=== PATIENT | male | born 1990 | race Caucasian/White ===

== ENCOUNTER 2018-08-09 13:19 | Day surgery (SDC) | payer OTHER, SELFPAY ==
--- NOTE | 2018-08-09 14:14 | RAD REPORT ---
EXAM DESCRIPTION: RAD - Hand Right 3 View - 08/09/2018 2:03 pm CLINICAL HISTORY: DEFORMITY Trauma COMPARISON: Hand Right 3 View dated 09/06/2013 FINDINGS: Mildly angulated fractures involve the distal fifth metacarpal shaft and mid fourth metaca rpal shaft of the right hand. Moderate adjacent soft tissue swelling. A dislocation is not seen.
[2018-08-09] MEDS ORDERED: CEFAZOLIN 1GM (PREMIX IV) 1 GM/50 ML BAG ONE (15:07)
[2018-08-09] MEDS ORDERED: METOCLOPRAMIDE 10 MG/2mL INJ ONE (15:14)
[2018-08-09] MEDS ORDERED: ACETAMINOPHEN 500 MG TAB PO PRN (15:26)
[2018-08-09] MEDS ORDERED: LIDOCAINE 1% MPF 5 ML VIAL ONE (15:28)
--- NOTE | 2018-08-09 15:37 | ER ---
Nurse's Notes [facility] Name: Car Kirby Age: 28 yrs Sex: Male : 1990 Arrival Date: 08/09/2018 Time: 13:20 Bed 27 Private MD: None, None Diagnosis: Displaced fracture of neck of fifth metacarpal bone, left hand Presentation: 08/09 13:33 Presenting complaint: Patient states: i punched the wall and hit the stud in the wall. tw2 Transition of care: patient was not received from another setting of care. Onset of symptoms was August 09, 2018. Risk Assessment: Do you want to hurt yourself or someone else? Patient reports no desire to harm self or others. Initial Sepsis Screen: Does the patient meet any 2 criteria? No. Patient's initial sepsis screen is negative. Does the patient have a suspected source of infection? No. Patient's initial sepsis screen is negative. Care prior to arrival: None. 13:33 Method Of Arrival: Ambulatory tw2 13:33 Acuity: SEE 4 tw2 Triage Assessment: 14:03 General: Appears in no apparent distress. comfortable, Behavior is calm, cooperative, kr2 appropriate for age. Historical: - Allergies: 13:35 Bactrim; tw2 - Home Meds: 13:35 None [Active]; tw2 - PMHx: 13:35 None; tw2 - PSHx: 13:35 right hand; tw2 - Immunization history:: Last tetanus immunization: < 5 years ago. - Social history:: Smoking status: Patient/guardian denies using tobacco. - Ebola Screening: : Patient denies travel to an Ebola-affected area in the 21 days before illness onset. Screenin:03 Abuse screen: Denies threats or abuse. Denies injuries from another. Nutritional kr2 screening: No deficits noted. Tuberculosis screening: No symptoms or risk factors identified. Fall Risk None identified. Assessment: 13:40 General: Appears in no apparent distress. comfortable, Behavior is calm, cooperative. kr2 Pain: Complains of pain in left hand Pain does not radiate. Pain currently is 10 out of 10 on a pain scale. Quality of pain is described as aching, throbbing, Is continuous, Alleviated by nothing. Neuro: Level of Consciousness is awake, alert, obeys commands, Oriented to person, place, time, situation, Appropriate for age Intact. Cardiovascular: Patient's skin is warm and dry. Respiratory: Airway is patent Respiratory effort is even, unlabored, Respiratory pattern is regular, symmetrical. Musculoskeletal: Circulation, motion, and sensation intact. Swelling present in left hand. Injury Description: Patient reports punching a wall and hitting the stud in the wall. Swelling and pain present to left hand. 14:30 Reassessment: Patient appears in no apparent distress at this time. Patient and/or kr2 family updated on plan of care and expected duration. Pain level reassessed. Patient is alert, oriented x 3, equal unlabored respirations, skin warm/dry/pink. 16:00 Reassessment: Patient appears in no apparent distress at this time. Patient and/or kr2 family updated on plan of care and expected duration. Pain level reassessed. Patient is alert, oriented x 3, equal unlabored respirations, skin warm/dry/pink. OR nurse here to transport [facility]. Vital Signs: 13:34 BP 136 / 85; Pulse 79; Resp 18; Temp 98.7(TE); Pulse Ox 99% on R/A; Pain 10/10; tw2 15:50 BP 134 / 70; Pulse 76; Resp 17; Pulse Ox 99% ; kr2 ED Course: 13:20 Patient arrived in ED. sb2 13:21 None, None is Private Physician. sb2 13:34 Triage completed. tw2 13:35 Arm band placed on. tw2 13:36 Leanne Sanchez, NEGATIVE TURNER APPRENTICE [facility]. nh 13:36 Paulino Quinones MD is Attending Physician. nh 13:40 Patient has correct armband on for positive identification. Bed in low position. Call kr2 light in reach. Side rails up X 1. Pulse ox on. NIBP on. Door closed. Lights dimmed. Head of bed elevated. 13:47 Monse Galloway RN is Primary Nurse. kr2 14:04 Hand Right 3 View XRAY In Process Unspecified. EDMS 15:15 Inserted saline lock: 18 gauge in right antecubital area, using aseptic technique. kr2 15:35 Subhash Saab MD is Hospitalizing Provider. nh 15:51 Inserted saline lock: 20 gauge in right forearm, using aseptic technique. IV ed1 discontinued, intact, bleeding controlled, Pressure dressing applied. 16:00 No provider procedures requiring assistance completed. Patient admitted, IV remains in kr2 place. 20g to right forearm. Administered Medications: 15:15 Drug: Reglan 10 mg Route: IVP; Site: right antecubital; kr2 15:30 Follow up: Response: No adverse reaction kr2 15:18 Drug: Ancef 1 grams Route: IVPB; Site: left antecubital; kr2 16:00 Follow up: Response: No adverse reaction; IV Status: Completed infusion kr2 Outcome: 15:30 Instructed on the need for admit, Demonstrated understanding of instructions. kr2 15:36 Decision to Hospitalize by Provider. de 16:00 Admitted to OR accompanied by nurse, via stretcher. kr2 16:00 Condition: stable 16:02 Patient left the ED. kr2 Signatures: Dispatcher [employer] EDMS Leanne Sanchez, NEGATIVE TURNER APPRENTICE NEGATIVE TURNER APPRENTICE de Fern Leon, MEDICAL PRACTITIONERS MEDICAL PRACTITIONERS ed1 Shanti Landeros RN RN tw2 Monse Galloway RN RN kr2 Nadia Enciso sb2
--- NOTE | 2018-08-09 15:37 | EDPHYS ---
Physician Documentation [facility] Name: Car Kirby Age: 28 yrs Sex: Male : 1990 Arrival Date: 08/09/2018 Time: 13:20 Bed 27 Private MD: None, None ED Physician Paulino Quinones HPI: 08/09 15:29 This 28 yrs old Male presents to ER via Ambulatory with complaints of Hand nh Injury. 15:29 The patient or guardian reports a contusion, deformity, injury. The complaints affect nh the right hand diffusely. Context: The problem was sustained at home, resulted from using own fist to strike, a wall. Onset: The symptoms/episode began/occurred acutely, just prior to arrival. Modifying factors: The symptoms are alleviated by nothing, the symptoms are aggravated by movement. Associated signs and symptoms: The patient has no apparent associated signs or symptoms. Severity of symptoms: At their worst the symptoms were moderate, just prior to arrival, in the emergency department the symptoms are unchanged. The patient has not experienced similar symptoms in the past. The patient has not recently seen a physician. Historical: - Allergies: 13:35 Bactrim; tw2 - Home Meds: 13:35 None [Active]; tw2 - PMHx: 13:35 None; tw2 - PSHx: 13:35 right hand; tw2 - Immunization history:: Last tetanus immunization: < 5 years ago. - Social history:: Smoking status: Patient/guardian denies using tobacco. - Ebola Screening: : Patient denies travel to an Ebola-affected area in the 21 days before illness onset. ROS: 15:29 Constitutional: Negative for fever, chills, and weight loss, Eyes: Negative for injury, nh pain, redness, and discharge, ENT: Negative for injury, pain, and discharge, Neck: Negative for injury, pain, and swelling, Cardiovascular: Negative for chest pain, palpitations, and edema, Respiratory: Negative for shortness of breath, cough, wheezing, and pleuritic chest pain, Abdomen/GI: Negative for abdominal pain, nausea, vomiting, diarrhea, and constipation, Back: Negative for injury and pain, : Negative for injury, bleeding, discharge, and swelling, Skin: Negative for injury, rash, and discoloration, Neuro: Negative for headache, weakness, numbness, tingling, and seizure, Psych: Negative for depression, anxiety, suicide ideation, homicidal ideation, and hallucinations, Allergy/Immunology: Negative for hives, rash, and allergies, Endocrine: Negative for neck swelling, polydipsia, polyuria, polyphagia, and marked weight changes, Hematologic/Lymphatic: Negative for swollen nodes, abnormal bleeding, and unusual bruising. 15:29 MS/extremity: Positive for contusion, swelling, tenderness. Exam: 15:29 Constitutional: This is a well developed, well nourished patient who is awake, alert, nh and in no acute distress. Head/Face: Normocephalic, atraumatic. Eyes: Pupils equal round and reactive to light, extra-ocular motions intact. Lids and lashes normal. Conjunctiva and sclera are non-icteric and not injected. Cornea within normal limits. Periorbital areas with no swelling, redness, or edema. ENT: Nares patent. No nasal discharge, no septal abnormalities noted. Tympanic membranes are normal and external auditory canals are clear. Oropharynx with no redness, swelling, or masses, exudates, or evidence of obstruction, uvula midline. Mucous membranes moist. Neck: Trachea midline, no thyromegaly or masses palpated, and no cervical lymphadenopathy. Supple, full range of motion without nuchal rigidity, or vertebral point tenderness. No Meningismus. Chest/axilla: Normal chest wall appearance and motion. Nontender with no deformity. No lesions are appreciated. Cardiovascular: Regular rate and rhythm with a normal S1 and S2. No gallops, murmurs, or rubs. Normal PMI, no JVD. No pulse deficits. Respiratory: Lungs have equal breath sounds bilaterally, clear to auscultation and percussion. No rales, rhonchi or wheezes noted. No increased work of breathing, no retractions or nasal flaring. Abdomen/GI: Soft, non-tender, with normal bowel sounds. No distension or tympany. No guarding or rebound. No evidence of tenderness throughout. Back: No spinal tenderness. No costovertebral tenderness. Full range of motion. Skin: Warm, dry with normal turgor. Normal color with no rashes, no lesions, and no evidence of cellulitis. Neuro: Awake and alert, GCS 15, oriented to person, place, time, and situation. Cranial nerves II-XII grossly intact. Motor strength 5/5 in all extremities. Sensory grossly intact. Cerebellar exam normal. Normal gait. Psych: Awake, alert, with orientation to person, place and time. Behavior, mood, and affect are within normal limits. 15:29 Musculoskeletal/extremity: Extremities: noted in the dorsum of left hand: contusion, deformity, pain, swelling, tenderness, abrasion, ROM: intact in all extremities, Circulation is intact in all extremities. Sensation intact. Compartment Syndrome exam of affected extremity: is normal. Vital Signs: 13:34 BP 136 / 85; Pulse 79; Resp 18; Temp 98.7(TE); Pulse Ox 99% on R/A; Pain 10/10; tw2 15:50 BP 134 / 70; Pulse 76; Resp 17; Pulse Ox 99% ; kr2 MDM: 13:36 Patient medically screened. pr 15:29 Data reviewed: vital signs, nurses notes, radiologic studies, I have discussed the pr patient's presentation/case with the attending Emergency Department Physician; and as a result, I will admit patient. Counseling: I had a detailed discussion with the patient and/or guardian regarding: the historical points, exam findings, and any diagnostic results supporting the discharge/admit diagnosis, radiology results, the need for outpatient follow up, to return to the emergency department if symptoms worsen or persist or if there are any questions or concerns that arise at home. 08/09 15:28 Order name: Basic Metabolic Panel EDMS 08/09 15:28 Order name: Basic Metabolic Panel EDMS 08/09 13:44 Order name: Hand Right 3 View XRAY; Complete Time: 14:27 pr 08/09 15:28 Order name: CBC with Automated Diff EDMS 08/09 15:28 Order name: CBC with Automated Diff EDMS 08/09 15:05 Order name: IV Saline Lock; Complete Time: 15:18 kr2 08/09 15:28 Order name: NPO EDMS Administered Medications: 15:15 Drug: Reglan 10 mg Route: IVP; Site: right antecubital; kr2 15:30 Follow up: Response: No adverse reaction kr2 15:18 Drug: Ancef 1 grams Route: IVPB; Site: left antecubital; kr2 16:00 Follow up: Response: No adverse reaction; IV Status: Completed infusion kr2 Disposition: 18:45 Co-signature as Attending Physician, Paulino Quinones MD. rn Disposition: 08/09/18 15:36 Hospitalization ordered by Subhash Saab for Observation. Preliminary diagnosis is Displaced fracture of neck of fifth metacarpal bone, left hand. - Bed requested for DAY SURGERY OTHER. - Status is Observation. kr2 - Condition is Stable. - Problem is new. - Symptoms are unchanged. UTI on Admission? No Signatures: Dispatcher [employer] EDMS Leanne Sanchez, OVER THE HORIZON TARGETING SUPERVISOR OVER THE HORIZON TARGETING SUPERVISOR pr Paulino Quinones MD MD rn Shanti Landeros RN RN tw2 Monse Galloway RN RN kr2 Corrections: (The following items were deleted from the chart) 16:02 15:36 Hospitalization Ordered by Subhash Saab MD for Observation. Preliminary kr2 diagnosis is Displaced fracture of neck of fifth metacarpal bone, left hand. Bed requested for DAY SURGERY OTHER. Status is Observation. Condition is Stable. Problem is new. Symptoms are unchanged. UTI on Admission? No. pr
[2018-08-09] MEDS ORDERED: MIDAZOLAM HCL 2 MG/2 ML INJ ONE (15:52)
[2018-08-09] MEDS ORDERED: FENTANYL CITR 100 MCG/2 ML ONE (15:52)
[2018-08-09] MEDS ORDERED: NA CHLORIDE 0.9% 1,000 ML IV SCH (16:00)
[2018-08-09] MEDS ORDERED: Ringers Lactate 1,000 ML IV ONE (16:10)
--- OUTSIDE RECORDS SUMMARY | 2018-08-09 16:10 | XMS REPORT ---
:1990 [facility] Address [address] [place] [address] Dr. Allan [address] [place] [id number] Care Team Providers Name Role Phone Unavailable Unavailable Unavailable Problems This patient has no known problems. Allergies, Adverse Reactions, Alerts This patient has no known allergies or adverse reactions. Medications This patient has no known medications.
[2018-08-09] MEDS ORDERED: PROPOFOL 200 MG/20 ML VIAL IV ONE (16:17)
[2018-08-09] MEDS ORDERED: SUCCINYLCHOLINE 20 MG/ML (10 ML) IV ONE (16:20)
[2018-08-09] MEDS ORDERED: KETOROLAC 30 MG/ML INJ ONE (16:51)
[2018-08-09] MEDS ORDERED: ONDANSETRON 4 MG/2 ML VIAL ONE (16:52)
[2018-08-09] MEDS ORDERED: DEXAMETHASONE 10 MG/ML VIAL ONE (16:52)
--- NOTE | 2018-08-09 17:26 | RAD REPORT ---
EXAM DESCRIPTION: RAD - Hand Left 3 View - 08/09/2018 5:18 pm CLINICAL HISTORY: LEFT 4TH AND 5TH METATARSAL PINNING COMPARISON: 08/09/2018 FINDINGS: Fluoroscopic imaging is submitted from pinning procedure of a left hand fracture. Details of the procedure not available. Total fluoroscopy time 3.1 minutes.
[2018-08-09] MEDS ORDERED: MEPERIDINE HCL 25 MG/0.5 ML ONE ×3 (17:30→17:53)
[2018-08-09] MEDS ORDERED: CODEINE 30MG/APAP 300MG TAB ONE (18:06)
--- NOTE | 2018-08-12 08:19 | OP ---
Surgeon: Subhash Saab MD Preoperative Diagnosis: Fracture of left fourth and fifth metacarpals. Postoperative Diagnosis: Fracture of left fourth and fifth metacarpals. Procedure: Pinning, splint, closed reduction. Anesthesia: General. Procedure In Detail: After satisfactory induction of general anesthesia, the hand was prepped with B etadine scrub, Betadine paint. Dry sterile drapes applied in usual manner. The arm was elevated, ex sanguinated with an Esmarch. Tourniquet was inflated to 250 mmHg. C-arm was brought in. Percutaneo us pinning was done with with C-arm guidance. The fourth metacarpal was approached first. Two pins were placed reducing fracture. Then 2 pins were placed in the fifth metacarpal. Pins wer e then cut and bent. X-rays were taken . The wounds were then jet lavaged. He had ____ puncture wounds of about 3 mm each. The wounds were then covered with Xeroform, 2 inch [place], a nd Kerlix, and a splint holding the wrist in 10 degrees of dorsiflexion, MCP 90, PIP and DIP 0. The patient tolerated the procedure well and returned to recovery room. ARANZA Voice ID: [id number] Report ID: [id number]
== END 2018-08-09 18:21 | disposition home or self-care (01) ==
LOC: ER 13:19 → OR 16:07
PROVIDERS: ATTEND Specialist
PROC: 0PSQ34Z Reposition Left Metacarpal with Internal Fixation Device, Percutaneous Approach (ICD-10-PCS; 2018-08-09)
PROC: 0PSQ34Z Reposition Left Metacarpal with Internal Fixation Device, Percutaneous Approach (ICD-10-PCS; principal; 2018-08-09 16:00)
DX: S62.305A Unspecified fracture of fourth metacarpal bone, left hand, initial encounter for closed fracture (principal); S62.307A Unspecified fracture of fifth metacarpal bone, left hand, initial encounter for closed fracture; Z72.0 Tobacco use; Z88.3 Allergy status to other anti-infective agents
CPT/HCPCS: 96365; 96375; 99285; J0330; J0690; J1100; J2175; J2250; J2405; J2704; J2765; J3010

== ENCOUNTER 2022-01-29 09:35 | Emergency (ER) | payer SELFPAY ==
--- OUTSIDE RECORDS SUMMARY | 2022-01-29 09:38 | XMS REPORT | Continuity of Care Document ---
:1990 Author Organization [facility] t Address [address] [place] [address] Dr. Allan [address] [place] [id number] Care Team Providers Name Role Phone Unavailable Unavailable Unavailable Problems This patient has no known problems. Allergies, Adverse Reactions, Alerts This patient has no known allergies or adverse reactions. Medications This patient has no known medications. Procedures This patient has no known procedures. Results This patient has no known results.
[2022-01-29] MEDS ORDERED: KETOROLAC 30 MG/ML INJ ONE (10:40)
--- NOTE | 2022-01-29 11:00 | RAD REPORT ---
EXAM DESCRIPTION: Joce Isbell Left01/29/2022 10:45 am CLINICAL HISTORY: Left leg pain FINDINGS: No fracture is seen. No bony abnormality noted
--- NOTE | 2022-01-29 11:27 | EDPHYS ---
Physician Documentation [facility] Name: Car Kirby Age: 31 yrs Sex: Male : 1990 Arrival Date: 01/29/2022 Time: 09:36 Bed 19 Private MD: DAGOBERTO Physician Ketan Crane HPI: 01/29 09:45 This 31 yrs old Male presents to ER via Ambulatory with complaints of Foot Pain, Leg jh7 Pain. 09:45 The patient presents with pain, a rash, erythematous. The complaints affect the left jh7 polanco. Onset: The symptoms/episode began/occurred last week, 2 week(s) ago. Patient complains of left polanco pain for 2 weeks. States that he is concerned because the pain has worsened, and now the surrounding area has become red and swollen. Denies any medical problems.. Historical: - Allergies: 09:43 Bactrim; vg1 - Home Meds: 09:43 None [Active]; vg1 - PMHx: 09:43 None; vg1 - PSHx: 09:43 None; vg1 - Immunization history:: Client reports having NOT received the Covid vaccine. - Social history:: Smoking status: Patient reports the use of cigarette tobacco products, smokes one-half pack cigarettes per day. ROS: 09:45 Constitutional: Negative for fever, chills, and weight loss. jh7 09:45 Eyes: Negative for injury, pain, redness, and discharge, Neck: Negative for injury, pain, and swelling, Cardiovascular: Negative for chest pain, palpitations, and edema, Respiratory: Negative for shortness of breath, cough, wheezing, and pleuritic chest pain, Abdomen/GI: Negative for abdominal pain, nausea, vomiting, diarrhea, and constipation, Back: Negative for injury and pain, Neuro: Negative for headache, weakness, numbness, tingling, and seizure. 09:45 MS/extremity: Positive for erythema, pain. 09:45 Skin: Positive for erythema, Negative for abrasions, laceration(s), puncture, ulceration. 09:45 All other systems are negative. Exam: 09:45 Constitutional: This is a well developed, well nourished patient who is awake, alert, jh7 and in no acute distress. 09:45 Head/Face: Normocephalic, atraumatic. Cardiovascular: Regular rate and rhythm with a normal S1 and S2. No gallops, murmurs, or rubs. Normal PMI, no JVD. No pulse deficits. Respiratory: Lungs have equal breath sounds bilaterally, clear to auscultation and percussion. No rales, rhonchi or wheezes noted. No increased work of breathing, no retractions or nasal flaring. Abdomen/GI: Soft, non-tender, with normal bowel sounds. No distension or tympany. No guarding or rebound. No evidence of tenderness throughout. Back: No spinal tenderness. No costovertebral tenderness. Full range of motion. Neuro: Awake and alert, GCS 15, oriented to person, place, time, and situation. Motor strength 5/5 in all extremities. Sensory grossly intact. Cerebellar exam normal. Normal gait. 09:45 Musculoskeletal/extremity: ROM: intact in all extremities, Circulation is intact in all extremities. the left polanco NVI, full range of motion, 5 cm of erythema and tenderness to palpation over the anterior lower leg. Pain with ambulation. 09:45 Musculoskeletal/extremity: 09:45 Skin: 5 cm of erythema over the left anterior polanco. Tenderness to palpation noted.. Vital Signs: 09:42 BP 131 / 100; Pulse 82; Resp 16; Temp 98.9(TE); Pulse Ox 100% ; Weight 70.31 kg; Height vg1 5 ft. 10 in. (177.80 cm); Pain 9/10; 09:42 Body Mass Index 22.24 (70.31 kg, 177.80 cm) vg1 MDM: 09:45 Patient medically screened. [facility] 11:30 Differential diagnosis: contusion, abrasion, tendonitis. Data reviewed: vital signs, [facility] nurses notes, radiologic studies, plain films. Data interpreted: Pulse oximetry: is 100 %. Interpretation: normal. Counseling: I had a detailed discussion with the patient and/or guardian regarding: to return to the emergency department if symptoms worsen or persist or if there are any questions or concerns that arise at home. 11:30 ED course: Informed the patient of the negative x-ray findings. Advised him to [facility] follow-up with Ortho if he continues to have issues with his polanco. Agreed to cover with antibiotics in the case of early cellulitis. Patient remained calm and stable throughout his ER visit. If he develops any new symptoms he is advised to return to the ER.. 01/29 09:54 Order name: XRKAYLEIGH Tib Fib LEFT; Complete Time: 13:32 [facility] Administered Medications: 10:41 Drug: Ketorolac 60 mg Route: IM; Site: left gluteus; manzo 10:41 Follow up: Response: No adverse reaction manzo Disposition Summary: 01/29/22 11:26 Discharge Ordered Location: Home [facility] Problem: new [facility] Symptoms: have improved [facility] Condition: Stable [facility] Diagnosis - Pain in left lower leg [facility] Followup: [facility] - With: Private Physician - When: 2 - 3 days - Reason: Recheck today's complaints Discharge Instructions: - Discharge Summary Sheet [facility] - Cellulitis, Adult [facility] - Musculoskeletal Pain [facility] - Heat Therapy [facility] Forms: - Medication Reconciliation Form [facility] - Thank You Letter [facility] Prescriptions: - Zanaflex 4 mg Oral Tablet - take 1 tablet by ORAL route every 8 hours As needed; 20 tablet; Refills: 0, [facility] Product Selection Permitted - Doxycycline Hyclate 100 mg Oral Tablet - take 1 tablet by ORAL route every 12 hours for 7 days; 14 tablet; Refills: 0, [facility] Product Selection Permitted - Medrol (Gadiel) 4 mg Oral Tablets, Dose Pack - take 1 tablet by ORAL route as directed - follow package instructions; 1 [facility] packet; Refills: 0, Product Selection Permitted Signatures: Dispatcher [employer] Danielle Morris, RN RN vg1 Sneha Kowalski RN RN ha Hadash, Jennifer, SLAB MILLER OPERATOR [place] [id number]
--- NOTE | 2022-01-29 11:27 | ER ---
Nurse's Notes [facility] Name: Car Kirby Age: 31 yrs Sex: Male : 1990 Arrival Date: 01/29/2022 Time: 09:36 Bed 19 Private MD: Diagnosis: Pain in left lower leg Presentation: 01/29 09:42 Chief complaint: Patient states: Left leg pain x 1 week, denies any injuries. vg1 Coronavirus screen: Vaccine status: Patient reports being unvaccinated. Client denies travel out of the [place] in the last 14 days. Ebola Screen: Patient denies exposure to infectious person. Patient denies travel to an Ebola-affected area in the 21 days before illness onset. Initial Sepsis Screen: Does the patient meet any 2 criteria? No. Patient's initial sepsis screen is negative. Does the patient have a suspected source of infection? No. Patient's initial sepsis screen is negative. Risk Assessment: Do you want to hurt yourself or someone else? Patient reports no desire to harm self or others. Onset of symptoms was January 17, 2022. 09:42 Method Of Arrival: Ambulatory vg1 09:42 Acuity: SEE 4 vg1 Triage Assessment: 09:43 General: Appears uncomfortable, Behavior is calm, cooperative. Pain: Complains of pain vg1 in lateral aspect of left calf Pain currently is 9 out of 10 on a pain scale. Musculoskeletal: Circulation, motion, and sensation intact. Historical: - Allergies: 09:43 Bactrim; vg1 - Home Meds: 09:43 None [Active]; vg1 - PMHx: 09:43 None; vg1 - PSHx: 09:43 None; vg1 - Immunization history:: Client reports having NOT received the Covid vaccine. - Social history:: Smoking status: Patient reports the use of cigarette tobacco products, smokes one-half pack cigarettes per day. Screenin:46 Abuse screen: Denies threats or abuse. Denies injuries from another. Nutritional manzo screening: No deficits noted. Tuberculosis screening: No symptoms or risk factors identified. Fall Risk None identified. Assessment: 10:46 General: Appears in no apparent distress. Behavior is calm, cooperative. Pain: manzo Complains of pain in left leg. Derm: Skin is red, Reports pain that is 6 out of 10 on a pain scale. Vital Signs: 09:42 BP 131 / 100; Pulse 82; Resp 16; Temp 98.9(TE); Pulse Ox 100% ; Weight 70.31 kg; Height vg1 5 ft. 10 in. (177.80 cm); Pain 9/10; 09:42 Body Mass Index 22.24 (70.31 kg, 177.80 cm) vg1 ED Course: 09:36 Patient arrived in ED. am2 09:43 Triage completed. vg1 09:43 Arm band placed on. vg1 09:45 Elvia Gonzalez FNP is [facility] 09:45 Ketan Crane MD is Attending Physician. [facility] 10:26 Sneha Kowalski, RN is Primary Nurse. manzo 10:46 Patient has correct armband on for positive identification. Bed in low position. manzo 10:46 No provider procedures requiring assistance completed. manzo 10:47 XRAY Tib Fib LEFT In Process Unspecified. EDMS 11:40 Patient did not have IV access during this emergency room visit. manzo Administered Medications: 10:41 Drug: Ketorolac 60 mg Route: IM; Site: left gluteus; manzo 10:41 Follow up: Response: No adverse reaction manzo Medication: 10:46 VIS not applicable for this client. manzo Outcome: 11:26 Discharge ordered by . [facility] 11:40 Discharged to home ambulatory. manzo 11:40 Condition: good 11:40 Discharge instructions given to patient, Prescriptions given X 3. 11:40 Patient left the ED. manzo Signatures: Dispatcher [employer] EDKS Azul Fitch 2 Danielle Lazo RN RN [facility] Sneha Kowalski, SARINA BRANCH manzo Elvia Gonzalez FNP [employer] [facility] Corrections: (The following items were deleted from the chart) 09:45 09:42 Chief complaint: Patient states: Left foot and Left leg pain x 1 week, denies any vg1 injuries. vg1
[2022-01-29 11:53] VITALS: BP 131/100; TEMP 98.9; O2SAT 100
== END 2022-01-29 11:40 | disposition home or self-care (01) ==
LOC: ER 09:35
DX: M79.662 Pain in left lower leg (principal); F17.210 Nicotine dependence, cigarettes, uncomplicated; Z88.1 Allergy status to other antibiotic agents
CPT/HCPCS: 96372; 99283

== ENCOUNTER 2022-03-27 14:19 | Emergency (ER) | payer SELFPAY ==
--- OUTSIDE RECORDS SUMMARY | 2022-03-27 14:23 | XMS REPORT | Continuity of Care Document ---
:1990 Author Organization [facility] t Address [address] [place] [address] Dr. Allan [address] [place] [id number] Care Team Providers Name Role Phone Unavailable Unavailable Unavailable Problems This patient has no known problems. Allergies, Adverse Reactions, Alerts This patient has no known allergies or adverse reactions. Medications This patient has no known medications. Procedures This patient has no known procedures. Results This patient has no known results.
--- NOTE | 2022-03-27 16:20 | RAD REPORT ---
EXAM DESCRIPTION: RAD - Foot Left 3 View - 03/27/2022 3:51 pm CLINICAL HISTORY: PAIN COMPARISON: No comparisons FINDINGS: No fracture, dislocation or periosteal reaction. No acute or destructive bony process. Pa bindu has normal variant fusion of the second, fourth and fifth DIP joints. No air or foreign body in the soft tissues. IMPRESSION: Negative left foot examination for acute finding.
--- NOTE | 2022-03-27 16:31 | EDPHYS ---
Physician Documentation [facility] Name: Car Kirby Age: 31 yrs Sex: Male : 1990 Arrival Date: 03/27/2022 Time: 14:21 Bed Waiting Private MD: ED Physician Loy Callahan HPI: 03/27 14:29 This 31 yrs old Male presents to ER via Unassigned with complaints of Foot jl9 Pain. Patient reports hurting in while working out and kicking a bag. . 14:29 The patient presents with pain, that is acute. The complaints affect the dorsum of left jl9 foot. Context: The problem was sustained at a sports field or court, resulted from a direct blow, the patient can fully bear weight, the patient is able to ambulate, Problem is a result from a previous injury: No. Onset: The symptoms/episode began/occurred 1 week(s) ago. Modifying factors: the symptoms are aggravated by movement. Associated signs and symptoms: Pertinent positives: Pertinent negatives numbness, tingling. Treatment prior to arrival includes: no previous treatment. Severity of symptoms: in the emergency department the symptoms a " 2" out of "10". Historical: - Allergies: 14:40 Bactrim; [facility] - Home Meds: 14:40 None [Active]; [facility] - PMHx: 14:40 None; [facility] - Immunization history:: Adult Immunizations up to date. - Social history:: Smoking status: Patient reports the use of cigarette tobacco products, smokes one-half pack cigarettes per day. ROS: 14:31 Constitutional: Negative for fever, chills, and weight loss, Eyes: Negative for injury, jl9 pain, redness, and discharge, ENT: Negative for injury, pain, and discharge, Neck: Negative for injury, pain, and swelling, Cardiovascular: Negative for chest pain, palpitations, and edema, Respiratory: Negative for shortness of breath, cough, wheezing, and pleuritic chest pain, Abdomen/GI: Negative for abdominal pain, nausea, vomiting, diarrhea, and constipation, Back: Negative for injury and pain, : Negative for injury, bleeding, discharge, and swelling. 14:31 Skin: Negative for injury, rash, and discoloration, Neuro: Negative for headache, weakness, numbness, tingling, and seizure, Psych: Negative for depression, anxiety, suicide ideation, homicidal ideation, and hallucinations, Allergy/Immunology: Negative for hives, rash, and allergies, Endocrine: Negative for neck swelling, polydipsia, polyuria, polyphagia, and marked weight changes, Hematologic/Lymphatic: Negative for swollen nodes, abnormal bleeding, and unusual bruising. 14:31 MS/extremity: Positive for pain. Exam: 14:32 Constitutional: This is a well developed, well nourished patient who is awake, alert, jl9 and in no acute distress. Head/Face: Normocephalic, atraumatic. Eyes: Pupils equal round and reactive to light, extra-ocular motions intact. Lids and lashes normal. Conjunctiva and sclera are non-icteric and not injected. Cornea within normal limits. Periorbital areas with no swelling, redness, or edema. ENT: Mucous membranes moist. Neck: Trachea midline, no thyromegaly or masses palpated, and no cervical lymphadenopathy. Supple, full range of motion without nuchal rigidity, or vertebral point tenderness. No Meningismus. Chest/axilla: Normal chest wall appearance and motion. Nontender with no deformity. No lesions are appreciated. Cardiovascular: Regular rate and rhythm with a normal S1 and S2. No gallops, murmurs, or rubs. Normal PMI, no JVD. No pulse deficits. Respiratory: Lungs have equal breath sounds bilaterally, clear to auscultation and percussion. No rales, rhonchi or wheezes noted. No increased work of breathing, no retractions or nasal flaring. Abdomen/GI: Soft, non-tender, with normal bowel sounds. No distension or tympany. No guarding or rebound. No evidence of tenderness throughout. Back: No spinal tenderness. No costovertebral tenderness. Full range of motion. Skin: Warm, dry with normal turgor. Normal color with no rashes, no lesions, and no evidence of cellulitis. 14:32 Neuro: Awake and alert, GCS 15, oriented to person, place, time, and situation. Cranial nerves II-XII grossly intact. Motor strength 5/5 in all extremities. Sensory grossly intact. Cerebellar exam normal. Normal gait. Psych: Awake, alert, with orientation to person, place and time. Behavior, mood, and affect are within normal limits. 14:32 Musculoskeletal/extremity: Extremities: grossly normal except: pain, ROM: limited active range of motion due to pain, Circulation is intact in all extremities. Sensation intact. Weight bearing: able to fully bear weight. Vital Signs: 14:38 BP 122 / 65; Pulse 86; Resp 16; Temp 98.4; Pulse Ox 100% ; Weight 68.04 kg; Height 5 5 ft. 10 in. (177.80 cm); Pain 8/10; 14:38 Body Mass Index 21.52 (68.04 kg, 177.80 cm) [facility] MDM: 14:26 Patient medically screened. jl9 14:33 Data reviewed: vital signs, nurses notes. jl9 16:29 Counseling: I had a detailed discussion with the patient and/or guardian regarding: the jl9 historical points, exam findings, and any diagnostic results supporting the discharge/admit diagnosis, the need for outpatient follow up, to return to the emergency department if symptoms worsen or persist or if there are any questions or concerns that arise at home. 03/27 14:28 Order name: XRAY Foot LEFT 3 View; Complete Time: 16:29 jl9 Administered Medications: No medications were administered Disposition: 17:58 Co-signature as Attending Physician, Loy Callahan DO I was immediately available on-site ms3 in the Emergency Department for consultation in the care of the patient.. Disposition Summary: 03/27/22 16:30 Discharge Ordered Location: Home jl9 Condition: Stable jl9 Diagnosis - Other sprain of left foot jl9 - Contusion of foot jl9 Followup: jl9 - With: Private Physician - When: 1 - 2 days - Reason: Recheck today's complaints, Continuance of care, Re-evaluation by your physician Discharge Instructions: - Discharge Summary Sheet jl9 - Foot Sprain jl9 Forms: - Medication Reconciliation Form jl9 - Thank You Letter jl9 - Antibiotic Education jl9 - Prescription Opioid Use jl9 Prescriptions: - Ibuprofen 800 mg Oral Tablet - take 1 tablet by ORAL route every 8 hours As needed take with food; 30 tablet; jl9 Refills: 0, Product Selection Permitted Signatures: Dispatcher [employer] EDLoy Hackett DO DO ms3 Nilda Guzman RN RN 5 Sae Perera jl9
--- NOTE | 2022-03-27 16:31 | ER ---
Nurse's Notes [facility] Name: Car Kirby Age: 31 yrs Sex: Male : 1990 Arrival Date: 03/27/2022 Time: 14:21 Bed Waiting Private MD: Diagnosis: Other sprain of left foot;Contusion of foot Presentation: 03/27 14:38 Chief complaint: Patient states: kicking a punching bag at gym last week, swelling, jh5 discomfort getting worse LEFT FOOT. Coronavirus screen: Vaccine status: Patient reports being unvaccinated. Client denies travel out of the [place] in the last 14 days. Ebola Screen: Patient negative for fever greater than or equal to 101.5 degrees Fahrenheit, and additional compatible Ebola Virus Disease symptoms Patient denies exposure to infectious person. Patient denies travel to an Ebola-affected area in the 21 days before illness onset. Initial Sepsis Screen: Does the patient meet any 2 criteria? No. Patient's initial sepsis screen is negative. Does the patient have a suspected source of infection? No. Patient's initial sepsis screen is negative. Risk Assessment: Do you want to hurt yourself or someone else? Patient reports no desire to harm self or others. Onset of symptoms was March 19, 2022. 14:38 Method Of Arrival: Ambulatory [facility] 14:38 Acuity: SEE 3 5 Triage Assessment: 14:40 General: Appears in no apparent distress. uncomfortable, slender, Behavior is calm, 5 cooperative, appropriate for age. Pain: Complains of pain in left foot. Historical: - Allergies: 14:40 Bactrim; [facility] - Home Meds: 14:40 None [Active]; [facility] - PMHx: 14:40 None; [facility] - Immunization history:: Adult Immunizations up to date. - Social history:: Smoking status: Patient reports the use of cigarette tobacco products, smokes one-half pack cigarettes per day. Vital Signs: 14:38 BP 122 / 65; Pulse 86; Resp 16; Temp 98.4; Pulse Ox 100% ; Weight 68.04 kg; Height 5 [facility] ft. 10 in. (177.80 cm); Pain 8/10; 14:38 Body Mass Index 21.52 (68.04 kg, 177.80 cm) [facility] ED Course: 14:21 Patient arrived in ED. mr 14:23 Sae Perera is PHCP. jl9 14:23 Loy Callahan DO is Attending Physician. jl9 14:40 Triage completed. 5 14:40 Arm band placed on right wrist. 5 15:53 XRAY Foot LEFT 3 View In Process Unspecified. EDMS Administered Medications: No medications were administered Outcome: 16:30 Discharge ordered by . [email or web address] 16:46 Patient left the ED. [facility] Signatures: Dispatcher [employer] EDMS Margaret Fonseca Jessica, RN RN [facility] Sae Perera jl9
[2022-03-27 17:08] VITALS: BP 122/65; TEMP 98.4; O2SAT 100
== END 2022-03-27 16:46 | disposition home or self-care (01) ==
LOC: ER 14:19
DX: S90.32XA Contusion of left foot, initial encounter (principal); S93.692A Other sprain of left foot, initial encounter; F17.210 Nicotine dependence, cigarettes, uncomplicated; Z88.1 Allergy status to other antibiotic agents